=== PATIENT | male | born 1950 | race Two or more races ===

== ENCOUNTER 2018-06-03 16:14 | Inpatient (IN) | payer MEDICARE, BC ==
[~2018-06-03] VITALS: Ht 180.3 cm; Wt 87.1 kg
[~2018-06-03 16:14] MED LIST: ANTIBIOTIC PO; ASPI-496 PO; OXYC-306 PO; ZOLP10TA PO
--- NOTE | 2018-06-03 16:25 | NUR ---
STANDING BS USING URINAL
--- NOTE | 2018-06-03 16:39 | NUR ---
DR TERAN BS FOR EXAM.
[2018-06-03] MEDS ORDERED: IBUP-1623 PO (16:47)
[2018-06-03 16:56] LABS: BASOPHILS # (AUTO) 0.03 x10^3/uL (0-0.1); BASOPHILS % (AUTO) 0 % (0-1); EOSINOPHILS # (AUTO) 0.07 x10^3/uL (0-0.4); EOSINOPHILS % (AUTO) 1 % (1-7); LYMPHOCYTES # (AUTO) 0.96 x10^3/uL (1-3.4); LYMPHOCYTES % (AUTO) 6 % (22-44); MD NO; MEAN CORPUSCULAR HEMOGLOBIN 30.3 pg (27.5-34.5); MEAN CORPUSCULAR HGB CONC 33.6 g/dL (33.2-36.2); MEAN CORPUSCULAR VOLUME 90.3 fL (81-97); MEAN PLATELET VOLUME 6.2 fL (7.4-10.4); MONOCYTES # (AUTO) 0.55 x10^3/uL (0.2-0.8); MONOCYTES % (AUTO) 4 % (2-9); NEUTROPHILS # (AUTO) 13.36 x10^3/uL (1.8-6.8); NEUTROPHILS % (AUTO) 89 % (42-75); PLATELET COUNT 363 x10^3/uL (130-400); RED BLOOD COUNT 3.52 x10^6/uL (4.38-5.82); RED CELL DISTRIBUTION WIDTH 13.1 % (9.4-14.8)
[2018-06-03] MEDS ORDERED: ONDANSETRON 2MG/ML, 2ML IVPush PRN (17:00)
[2018-06-03] MEDS ORDERED: POLYETHYLENE GLYCOL 17 GM PACKET PO PRN (17:00)
[2018-06-03] MEDS ORDERED: LABETALOL 5MG/ML, 20ML IVPush PRN (17:00)
[2018-06-03] MEDS ORDERED: ENALAPRILAT 1.25 MG/ML, 2ML IVPush PRN (17:00)
[2018-06-03] MEDS ORDERED: MORPHINE SULFATE 4 MG/ML, 1ML IVPush ONE (17:00)
[2018-06-03] MEDS ORDERED: SODIUM CHLORIDE FLUSH 10ML SYR IVF ONE (17:00)
[2018-06-03] MEDS ORDERED: MORPHINE SULFATE 4 MG/ML, 1ML IVPush PRN (17:00)
[2018-06-03 17:02] LABS: INTERNATIONAL NORMALIZED RATIO 1.14 (0.93-1.1)
[2018-06-03 17:04] LABS: ALANINE AMINOTRANSFERASE 24 U/L (12-78); ALBUMIN 3.1 g/dL (3.4-5.0); ANION GAP 3 mmol/L (5-15); CALCIUM 8.3 mg/dL (8.5-10.1); CHLORIDE 105 mmol/L (98-107); CREATININE 0.59 mg/dL (0.7-1.3)
[2018-06-03 17:06] LABS: ALKALINE PHOSPHATASE 90 U/L (45-117); BILIRUBIN,TOTAL 0.3 mg/dL (0.2-1.0); TOTAL PROTEIN 7.5 g/dL (6.4-8.2)
[2018-06-03] MEDS ORDERED: MORPHINE SULFATE 4 MG/ML, 1ML ONE (17:09)
--- NOTE | 2018-06-03 17:19 | NUR ---
PT REPORT TO ALVARADO ALONZO. PT CARE TRANSFERRED.
[2018-06-03] MEDS ORDERED: TRAZ50TA66 PO (17:30)
[2018-06-03] MEDS ORDERED: MORP60TA PO (17:30)
[2018-06-03] MEDS ORDERED: MORPHINE IR PO (17:30)
[2018-06-03] MEDS ORDERED: CITA40TA5 PO (17:30)
[2018-06-03] MEDS ORDERED: TEMA15CA PO (17:30)
[2018-06-03] MEDS ORDERED: METF500T17 PO (17:30)
[2018-06-03] MEDS ORDERED: GABA800T5 PO (17:30)
[2018-06-03] MEDS: SODIUM CHLORIDE 0.9% 1,000 ML IV SCH (17:37)
[2018-06-03] MEDS ORDERED: ACETAMINOPHEN 325 MG TABLET ONE (18:12)
[2018-06-03] MEDS: ACETAMINOPHEN 325 MG TABLET PO PRN (18:14)
[2018-06-03] MEDS: AMPICILLIN/SULBACTAM 3 GM in SODIUM CHLORIDE 0.9% 100 ML IV SCH ×2 (18:14→23:26)
[2018-06-03 20:22] VITALS: BP 99/42
[2018-06-03] MEDS: morphine SULFATE 60 MG TABLET.ER PO SCH (21:27)
[2018-06-03] MEDS: morphine SULFATE 15 MG TAB.IR PO PRN (21:41)
[2018-06-04] MEDS: SODIUM CHLORIDE 0.9% 1,000 ML IV SCH ×3 (01:26→17:44)
[2018-06-04] MEDS: morphine SULFATE 15 MG TAB.IR PO PRN ×3 (01:26→12:50)
[2018-06-04 04:12] LABS: BASOPHILS # (AUTO) 0.01 x10^3/uL (0-0.1); BASOPHILS % (AUTO) 0 % (0-1); EOSINOPHILS # (AUTO) 0.02 x10^3/uL (0-0.4); EOSINOPHILS % (AUTO) 0 % (1-7); LYMPHOCYTES # (AUTO) 0.99 x10^3/uL (1-3.4); LYMPHOCYTES % (AUTO) 7 % (22-44); MD NO; MEAN CORPUSCULAR HEMOGLOBIN 29.6 pg (27.5-34.5); MEAN CORPUSCULAR HGB CONC 33.3 g/dL (33.2-36.2); MEAN PLATELET VOLUME 6.1 fL (7.4-10.4); MONOCYTES # (AUTO) 0.62 x10^3/uL (0.2-0.8); MONOCYTES % (AUTO) 5 % (2-9); NEUTROPHILS # (AUTO) 12.36 x10^3/uL (1.8-6.8); NEUTROPHILS % (AUTO) 88 % (42-75); PLATELET COUNT 323 x10^3/uL (130-400); RED CELL DISTRIBUTION WIDTH 13.2 % (9.4-14.8)
[2018-06-04 04:25] LABS: ALANINE AMINOTRANSFERASE 19 U/L (12-78); ALBUMIN 2.8 g/dL (3.4-5.0); ANION GAP 5 mmol/L (5-15); CALCIUM 8.1 mg/dL (8.5-10.1); CHLORIDE 103 mmol/L (98-107); CREATININE 0.52 mg/dL (0.7-1.3)
[2018-06-04 04:28] LABS: ALKALINE PHOSPHATASE 79 U/L (45-117); BILIRUBIN,TOTAL 0.3 mg/dL (0.2-1.0); TOTAL PROTEIN 6.9 g/dL (6.4-8.2)
[2018-06-04 04:45] LABS: INTERNATIONAL NORMALIZED RATIO 1.27 (0.93-1.1); PROTHROMBIN TIME 13.3 Seconds (9.6-11.5)
[2018-06-04] MEDS: AMPICILLIN/SULBACTAM 3 GM in SODIUM CHLORIDE 0.9% 100 ML IV SCH ×4 (05:02→23:19)
[2018-06-04] MEDS: PANTOPRAZOLE 40 MG IV IVPush SCH (07:56)
[2018-06-04] MEDS: morphine SULFATE 60 MG TABLET.ER PO SCH ×2 (07:56→21:24)
[2018-06-04] MEDS ORDERED: HYDROmorphone 2 MG/ML, 1ML IVPush PRN (10:00)
[2018-06-04] MEDS: INSULIN LISPRO 100 UNITS/ML, PEN SQ-INSULIN SCH ×2 (14:30→21:23)
[2018-06-04] MEDS: GABAPENTIN 400 MG CAPSULE PO SCH ×2 (15:22→21:23)
[2018-06-04] MEDS: TRAZODONE 50MG TABLET PO SCH (21:23)
[2018-06-04] MEDS: CITALOPRAM 20 MG TABLET PO SCH (21:24)
[2018-06-05 04:51] LABS: BASOPHILS # (AUTO) 0.02 x10^3/uL (0-0.1); BASOPHILS % (AUTO) 0 % (0-1); EOSINOPHILS % (AUTO) 1 % (1-7); LYMPHOCYTES # (AUTO) 1.07 x10^3/uL (1-3.4); LYMPHOCYTES % (AUTO) 10 % (22-44); MD NO; MEAN CORPUSCULAR HEMOGLOBIN 30.9 pg (27.5-34.5); MEAN CORPUSCULAR HGB CONC 34.3 g/dL (33.2-36.2); MEAN CORPUSCULAR VOLUME 90.1 fL (81-97); MEAN PLATELET VOLUME 5.9 fL (7.4-10.4); MONOCYTES # (AUTO) 0.76 x10^3/uL (0.2-0.8); MONOCYTES % (AUTO) 7 % (2-9); NEUTROPHILS # (AUTO) 8.44 x10^3/uL (1.8-6.8); NEUTROPHILS % (AUTO) 81 % (42-75); PLATELET COUNT 317 x10^3/uL (130-400); RED CELL DISTRIBUTION WIDTH 13.1 % (9.4-14.8)
[2018-06-05] MEDS: SODIUM CHLORIDE 0.9% 1,000 ML IV SCH (04:51)
[2018-06-05] MEDS: AMPICILLIN/SULBACTAM 3 GM in SODIUM CHLORIDE 0.9% 100 ML IV SCH ×4 (05:21→23:16)
[2018-06-05] MEDS: morphine SULFATE 15 MG TAB.IR PO PRN ×2 (05:39→12:07)
[2018-06-05] MEDS: INSULIN LISPRO 100 UNITS/ML, PEN SQ-INSULIN SCH ×4 (07:00→21:00)
[2018-06-05] MEDS: morphine SULFATE 60 MG TABLET.ER PO SCH ×2 (09:09→19:30)
[2018-06-05] MEDS: GABAPENTIN 400 MG CAPSULE PO SCH ×3 (09:09→20:52)
[2018-06-05] MEDS: PANTOPRAZOLE 40 MG IV IVPush SCH (09:09)
[2018-06-05 14:11] VITALS: BP 136/56
[2018-06-05 18:34] VITALS: BP 120/66
[2018-06-05 19:22] VITALS: BP 136/71
[2018-06-05] MEDS: ACETAMINOPHEN 325 MG TABLET PO PRN (20:52)
[2018-06-05] MEDS: FLUCONAZOLE 100 MG TABLET PO SCH (20:56)
[2018-06-05] MEDS: NYSTATIN 500,000 UNITS/5 ML UDC PO SCH (20:57)
[2018-06-05] MEDS: TRAZODONE 50MG TABLET PO SCH (21:37)
[2018-06-05] MEDS: CITALOPRAM 20 MG TABLET PO SCH (21:37)
[2018-06-05] MEDS: TEMAZEPAM 15 MG CAPSULE PO PRN (21:37)
[2018-06-06 00:54] VITALS: BP 98/55
[2018-06-06 04:41] LABS: BASOPHILS # (AUTO) 0.03 x10^3/uL (0-0.1); BASOPHILS % (AUTO) 0 % (0-1); EOSINOPHILS # (AUTO) 0.22 x10^3/uL (0-0.4); EOSINOPHILS % (AUTO) 3 % (1-7); LYMPHOCYTES % (AUTO) 14 % (22-44); MD NO; MEAN CORPUSCULAR HEMOGLOBIN 29.9 pg (27.5-34.5); MEAN CORPUSCULAR HGB CONC 33.2 g/dL (33.2-36.2); MEAN CORPUSCULAR VOLUME 90.1 fL (81-97); MEAN PLATELET VOLUME 6.1 fL (7.4-10.4); MONOCYTES # (AUTO) 0.66 x10^3/uL (0.2-0.8); MONOCYTES % (AUTO) 8 % (2-9); NEUTROPHILS # (AUTO) 6.49 x10^3/uL (1.8-6.8); NEUTROPHILS % (AUTO) 75 % (42-75); PLATELET COUNT 333 x10^3/uL (130-400); RED BLOOD COUNT 2.96 x10^6/uL (4.38-5.82); RED CELL DISTRIBUTION WIDTH 13.1 % (9.4-14.8)
[2018-06-06] MEDS: NYSTATIN 500,000 UNITS/5 ML UDC PO SCH ×4 (05:05→21:35)
[2018-06-06] MEDS: AMPICILLIN/SULBACTAM 3 GM in SODIUM CHLORIDE 0.9% 100 ML IV SCH ×4 (05:05→23:33)
[2018-06-06] MEDS: ACETAMINOPHEN 325 MG TABLET PO PRN ×2 (06:27→17:19)
[2018-06-06] MEDS: INSULIN LISPRO 100 UNITS/ML, PEN SQ-INSULIN SCH ×4 (07:00→19:59)
[2018-06-06] MEDS: morphine SULFATE 60 MG TABLET.ER PO SCH ×2 (07:30→19:57)
[2018-06-06 07:31] VITALS: BP 118/65
[2018-06-06] MEDS: PANTOPRAZOLE 40 MG IV IVPush SCH (07:41)
[2018-06-06] MEDS: FLUCONAZOLE 100 MG TABLET PO SCH (09:14)
[2018-06-06] MEDS: GABAPENTIN 400 MG CAPSULE PO SCH ×3 (09:14→21:35)
[2018-06-06] MEDS: DOCUSATE 100 MG CAPSULE PO PRN (11:52)
[2018-06-06 12:26] LABS: HEMOGLOBIN A1C 6.3 % (4.2-6.3)
[2018-06-06] MEDS: morphine SULFATE 15 MG TAB.IR PO PRN ×2 (12:54→17:12)
[2018-06-06 16:12] VITALS: BP 133/70
[2018-06-06 19:01] VITALS: BP 121/76
[2018-06-06] MEDS: CITALOPRAM 20 MG TABLET PO SCH (21:35)
[2018-06-06] MEDS: TRAZODONE 50MG TABLET PO SCH (21:35)
[2018-06-06] MEDS: TEMAZEPAM 15 MG CAPSULE PO PRN (21:35)
[2018-06-07 00:47] VITALS: BP 97/50
[2018-06-07 01:18] VITALS: BP 103/58
[2018-06-07] MEDS: morphine SULFATE 15 MG TAB.IR PO PRN ×2 (01:55→08:36)
[2018-06-07] MEDS: ACETAMINOPHEN 325 MG TABLET PO PRN ×2 (01:55→13:00)
[2018-06-07 04:41] LABS: BASOPHILS # (AUTO) 0.02 x10^3/uL (0-0.1); BASOPHILS % (AUTO) 0 % (0-1); EOSINOPHILS # (AUTO) 0.19 x10^3/uL (0-0.4); EOSINOPHILS % (AUTO) 3 % (1-7); LYMPHOCYTES % (AUTO) 16 % (22-44); MD NO; MEAN CORPUSCULAR HEMOGLOBIN 29.7 pg (27.5-34.5); MEAN CORPUSCULAR HGB CONC 32.8 g/dL (33.2-36.2); MEAN CORPUSCULAR VOLUME 90.6 fL (81-97); MEAN PLATELET VOLUME 6.1 fL (7.4-10.4); MONOCYTES # (AUTO) 0.61 x10^3/uL (0.2-0.8); MONOCYTES % (AUTO) 8 % (2-9); NEUTROPHILS # (AUTO) 5.59 x10^3/uL (1.8-6.8); NEUTROPHILS % (AUTO) 73 % (42-75); PLATELET COUNT 352 x10^3/uL (130-400); RED BLOOD COUNT 2.89 x10^6/uL (4.38-5.82); RED CELL DISTRIBUTION WIDTH 13.2 % (9.4-14.8)
[2018-06-07] MEDS: AMPICILLIN/SULBACTAM 3 GM in SODIUM CHLORIDE 0.9% 100 ML IV SCH ×2 (05:19→11:05)
[2018-06-07] MEDS: NYSTATIN 500,000 UNITS/5 ML UDC PO SCH ×2 (05:24→11:05)
[2018-06-07 07:16] VITALS: BP 105/72
[2018-06-07] MEDS: INSULIN LISPRO 100 UNITS/ML, PEN SQ-INSULIN SCH ×2 (07:41→11:27)
[2018-06-07] MEDS ORDERED: metFORMIN XR 500 MG TAB.ER.24H PO SCH (08:00)
[2018-06-07] MEDS: GABAPENTIN 400 MG CAPSULE PO SCH (08:19)
[2018-06-07] MEDS: morphine SULFATE 60 MG TABLET.ER PO SCH (08:19)
[2018-06-07] MEDS: FLUCONAZOLE 100 MG TABLET PO SCH (08:19)
[2018-06-07] MEDS: DOCUSATE 100 MG CAPSULE PO PRN (08:36)
[2018-06-07] MEDS ORDERED: NYST1000 PO (10:02)
[2018-06-07] MEDS ORDERED: AMOX1TAB64 PO (10:02)
== END 2018-06-07 13:21 | disposition home or self-care (01) | DRG 543 ==
LOC: ED 16:32 → EDIP 17:00 → CCU 18:41 → 3NW 06-05 11:07
PROVIDERS: ADMIT Internal Medicine; ATTEND Internal Medicine
PROC: 2Y41X5Z Packing of Nasal Region using Packing Material (ICD-10-PCS; principal; 2018-06-03)
DX: C41.0 Malignant neoplasm of bones of skull and face (principal); B37.0 Candidal stomatitis; E44.0 Moderate protein-calorie malnutrition; F32.9 Major depressive disorder, single episode, unspecified; E11.9 Type 2 diabetes mellitus without complications; C10.9 Malignant neoplasm of oropharynx, unspecified; G89.3 Neoplasm related pain (acute) (chronic); J01.90 Acute sinusitis, unspecified; G47.00 Insomnia, unspecified; R04.0 Epistaxis; Z82.49 Family history of ischemic heart disease and other diseases of the circulatory system; Z85.818 Personal history of malignant neoplasm of other sites of lip, oral cavity, and pharynx; Z83.3 Family history of diabetes mellitus; Z80.9 Family history of malignant neoplasm, unspecified; Z85.89 Personal history of malignant neoplasm of other organs and systems; Z92.21 Personal history of antineoplastic chemotherapy; Z92.3 Personal history of irradiation
CPT/HCPCS: 36415; 80053; 82962; 83036; 85025; 85610; 85730; 86850; 86900; 87081; 93005; 96374; 99285; G0378; J0295; J1170; C9113; J1815; J7030